=== PATIENT | male | born 2000 | race Caucasian/White ===

== ENCOUNTER 2021-12-31 09:35 | Emergency (ER) | payer OTHER ==
[2021-12-31] MEDS ORDERED: Lidocaine 1% 5 ML VIAL INJECT ONE (10:11)
[2021-12-31] MEDS ORDERED: Diphtheria,Pertussis(Acell),Tetanus Vaccine 0.5 ML Syringe IM ONE (10:11)
[2021-12-31] MEDS ORDERED: Bacitracin Oint 1 GM U/D Packet TOP ONE (10:11)
== END 2021-12-31 11:15 | disposition home or self-care (01) ==
LOC: JP.ED 09:35
DX: S61.313A Laceration without foreign body of left middle finger with damage to nail, initial encounter (principal); Z23 Encounter for immunization; W23.1XXA Caught, crushed, jammed, or pinched between stationary objects, initial encounter; Y99.0 Civilian activity done for income or pay
CPT/HCPCS: 12001; 73140-F2; 90471; 90715; 99281; 99283-25